=== PATIENT | female | born 1970 | race Caucasian/White ===

== ENCOUNTER 2023-11-25 07:04 | Day surgery (SDC) | payer BC ==
[~2023-11-25] VITALS: Ht 172.7 cm; Wt 72.0 kg
[~2023-11-25 07:04] MED LIST: LR 1,000 ML IV SCH; Ondansetron 4 MG/2 ML VIAL IV PRN
[2023-11-25 07:13] VITALS: BP 134/83; PULSE 58; TEMP 97.3
[2023-11-25] MEDS ORDERED: PRIL40 PO (07:17)
[2023-11-25] MEDS ORDERED: WELLBUTRIN XL300 M1 PO (07:17)
[2023-11-25] MEDS ORDERED: [UNRECOGNIZED DRUG - OTHER] TOP (07:19)
[2023-11-25] MEDS ORDERED: ZYRTEC 10MG10 MG PO (07:20)
[2023-11-25] MEDS ORDERED: CALCIUM 600MG+D1 TAB PO (07:21)
[2023-11-25] MEDS ORDERED: HCTZ 25MG TAB25 MG PO (07:21)
[2023-11-25] MEDS ORDERED: MULTIPLE VITAMI1 CAP PO (07:22)
--- NOTE | 2023-11-25 07:42 | NUR ---
The patient ambulated back to [facility] independently using a steady gait and appeared to tolerate the activity well. Vital signs obtained. Consent signed. 20G IV started in right hand with one stick, LR infusing without difficulty. Assessment completed. Home medications reconcilled. Warm blanket provided. Significant other, Steve, brought back to be at her bedside. Denies any further needs at this time.
[2023-11-25] MEDS ORDERED: Lidocaine PF 2% (20 MG/ML) 5 ML VIAL ONE (07:57)
[2023-11-25 09:00] VITALS: BP 116/79; PULSE 78; TEMP 97.9
[2023-11-25 09:15] VITALS: BP 130/87; PULSE 71
[2023-11-25 09:30] VITALS: BP 118/77; PULSE 71
--- NOTE | 2023-11-25 09:35 | NUR ---
0900- Pt arrived to [facility] - pt ambulated from cart to chair with standby assit 09- pt tolerating po intake well 09- MD Hunter in room with pt and 09- pt verbalizes understanding discharge materials 30- pt dressed self 0935- pt escorted out via wheelchair with to vehicle
== END 2023-11-25 09:37 | disposition home or self-care (01) ==
LOC: SDCO 07:04
DX: K85.90 Acute pancreatitis without necrosis or infection, unspecified (principal); K57.30 Diverticulosis of large intestine without perforation or abscess without bleeding; K64.0 First degree hemorrhoids; K21.9 Gastro-esophageal reflux disease without esophagitis; K62.5 Hemorrhage of anus and rectum; K22.89 Other specified disease of esophagus; F10.10 Alcohol abuse, uncomplicated; Z86.010 Personal history of colon polyps; Z79.899 Other long term (current) drug therapy; Z80.0 Family history of malignant neoplasm of digestive organs; Z83.719 Family history of colon polyps, unspecified
CPT/HCPCS: J2704; J7120